=== PATIENT | female | born 1985 | race Caucasian/White ===

== ENCOUNTER 2021-12-22 17:29 | Inpatient (IN) | payer BC ==
[2021-12-22] MEDS ORDERED: Milk Of Magnesia 30 ML UDCUP PO PRN (18:14)
[2021-12-22] MEDS ORDERED: hydrALAZINE 20 MG/ML VIAL SLOW IVP PRN (18:14)
[2021-12-22] MEDS ORDERED: Ondansetron PF 4 MG/2 ML Vial IVP PRN (18:14)
[2021-12-22] MEDS ORDERED: Bisacodyl 10 MG SUPP PR PRN (18:14)
[2021-12-22] MEDS ORDERED: Measles/Mumps/Rubella 10 MCG/0.5 ML VIAL SC ONE (18:14)
[2021-12-22] MEDS ORDERED: Boostrix 0.5 ML (Tdap) VIAL (>/=7 yrs of age) IM ONE (18:14)
[2021-12-22 19:19] LABS: #Monocytes 0.7 10x3/uL (0.0-1.1); #Neutrophils 14.5 10x3/uL (1.5-8.4); %Basophils 0.2 % (0.0-2.0); %Lymphocytes 5.3 % (18.0-47.0); %Monocytes 4.3 % (0.0-10.0); %Neutrophils 89.5 % (40.0-75.0); Hemoglobin 10.7 g/dL (12.0-15.5); Mean Corpuscular HGB CONC 33.8 g/dL (32.0-36.0); Mean Corpuscular Hemoglobin 27.8 pg (27.0-33.0); Mean Corpuscular Volume 82.3 fl (81.6-98.3); Mean Platelet Volume 10.6 fl (7.4-10.4); Platelet Count 273 10x3/uL (150-450); RBC Distribution Width 14.8 % (11.5-14.5); Red Blood Cell (RBC) Count 3.85 10x6/uL (3.90-5.03); White Blood Cell (WBC) Count 16.2 10x3/uL (3.5-10.5)
[2021-12-22 19:52] LABS: Syphilis Antibody Nonreactive (Nonreactive); Syphilis Antibody Index 0.03 S/CO (<1.00 Non-Reactive)
[2021-12-22 19:53] LABS: HBSAg Index 0.21 S/CO (0-0.99); Hep B Surf Ag Non-Reactive S/CO (NonReactive)
[2021-12-22] MEDS: Docusate 100 MG CAP PO SCH (22:08)
[2021-12-22] MEDS: Lactated Ringer's 1,000 ML IV SCH (22:08)
[2021-12-22] MEDS: Ibuprofen 800 MG TAB PO SCH (22:08)
[2021-12-23] MEDS: Ibuprofen 800 MG TAB PO SCH ×3 (05:21→21:28)
[2021-12-23] MEDS: Lactated Ringer's 1,000 ML IV SCH ×2 (05:36→14:38)
[2021-12-23 06:43] LABS: Hemoglobin 9.8 g/dL (12.0-15.5); Mean Corpuscular HGB CONC 33.2 g/dL (32.0-36.0); Mean Corpuscular Hemoglobin 27.6 pg (27.0-33.0); Mean Corpuscular Volume 83.1 fl (81.6-98.3); Mean Platelet Volume 9.9 fl (7.4-10.4); Platelet Count 257 10x3/uL (150-450); RBC Distribution Width 14.9 % (11.5-14.5); Red Blood Cell (RBC) Count 3.55 10x6/uL (3.90-5.03); White Blood Cell (WBC) Count 14.3 10x3/uL (3.5-10.5)
[2021-12-23] MEDS: Docusate 100 MG CAP PO SCH ×2 (09:15→22:16)
[2021-12-23] MEDS: Prenatal Vitamin 1 TAB PO SCH (09:15)
[2021-12-23] MEDS: Ferrous Sulfate 325 MG TAB PO SCH ×2 (09:15→21:28)
[2021-12-23 11:36] LABS: SARS-CoV-2 NAA Rapid Test Not Detected (NotDetected)
[2021-12-24] MEDS: Lactated Ringer's 1,000 ML IV SCH ×2 (01:56→09:14)
[2021-12-24] MEDS: Ibuprofen 800 MG TAB PO SCH (05:34)
[2021-12-24 07:57] VITALS: BP 113/55; TEMP 97.7
[2021-12-24] MEDS: Prenatal Vitamin 1 TAB PO SCH (09:13)
[2021-12-24] MEDS: Ferrous Sulfate 325 MG TAB PO SCH (09:13)
[2021-12-24] MEDS: Docusate 100 MG CAP PO SCH (09:13)
== END 2021-12-24 13:30 | disposition home or self-care (01) | DRG 769 ==
LOC: CSHLD 17:29 → CSHPP 21:55
PROVIDERS: ADMIT Obstetrics & Gynecology; ATTEND Obstetrics & Gynecology
PROC: 10D17Z9 Manual Extraction of Products of Conception, Retained, Via Natural or Artificial Opening (ICD-10-PCS; principal; 2021-12-22)
PROC: 3E0334Z Introduction of Serum, Toxoid and Vaccine into Peripheral Vein, Percutaneous Approach (ICD-10-PCS; 2021-12-23)
DX: O72.2 Delayed and secondary postpartum hemorrhage (principal); Z20.822 Contact with and (suspected) exposure to COVID-19; O26.893 Other specified pregnancy related conditions, third trimester; Z67.11 Type A blood, Rh negative
CPT/HCPCS: 36415; 85025; 85027; 85461; 86780; 86850; 86870; 86900; 86901; 87340; 90384; 96372; U0002